=== PATIENT | female | born 1955 | race African-American/Black ===

== ENCOUNTER 2017-09-27 18:39 | Emergency (ER) | payer MEDICARE, OTHER | END 2017-09-27 22:23 | disposition home or self-care (01) | LOC: ERS 18:39 | DX: M25.512 Pain in left shoulder (principal); E78.5 Hyperlipidemia, unspecified; I10 Essential (primary) hypertension; F17.210 Nicotine dependence, cigarettes, uncomplicated; Z86.73 Personal history of transient ischemic attack (TIA), and cerebral infarction without residual deficits; Z79.899 Other long term (current) drug therapy; Z79.84 Long term (current) use of oral hypoglycemic drugs | CPT/HCPCS: 93005 ==

== ENCOUNTER 2023-05-22 09:45 | Emergency (ER) | payer OTHER, MEDICAID ==
[2023-05-22 11:12] LABS: Influenza A by NAA Not Detected (NotDetected); Influenza B by NAA Not Detected (NotDetected); SARS-CoV-2 NAA Rapid Test Not Detected (NotDetected)
== END 2023-05-22 11:46 | disposition home or self-care (01) ==
LOC: ERS 09:45
DX: J06.9 Acute upper respiratory infection, unspecified (principal); I10 Essential (primary) hypertension; E78.00 Pure hypercholesterolemia, unspecified; F17.210 Nicotine dependence, cigarettes, uncomplicated; Z86.73 Personal history of transient ischemic attack (TIA), and cerebral infarction without residual deficits; Z79.899 Other long term (current) drug therapy
CPT/HCPCS: 99283